=== PATIENT | female | born 1990 | race Caucasian/White ===

== ENCOUNTER 2017-05-21 07:53 | Emergency (ER) | payer BC, OTHER ==
[2017-05-21 08:29] LABS: #Eosinphils 0.3 thou/uL (0.0-0.7); #Lymphocytes 1.8 thou/uL (1.20-3.40); #Monocytes 0.6 thou/uL (0.11-0.59); #Neutrophils 4.8 thou/uL (1.40-6.50); %Basophils 0.6 % (0.0-1.0); %Eosinophils 4.1 % (0.0-10.0); %Lymphocytes 24.1 % (21.0-51.0); %Monocytes 7.5 % (0.0-10.0); Hematocrit 38.1 % (36.0-47.0); Mean Platelet Volume 6.7 fL (7.4-10.4); Red Blood Cell (RBC) Count 3.71 mill/uL (4.20-5.40); White Blood Cell (WBC) Count 7.6 thou/uL (4.8-10.8)
[2017-05-21 09:02] LABS: Bilirubin Negative (Negative); Blood, Urine Trace (Negative); Glucose, Urine (Dipstick) Negative (Negative); Ketone, Urine Negative (Negative); Nitrite Negative (Negative); Protein, Urine (Dipstick) Negative (Neg-Trace); Urobilinogen 0.2 mg/dL (0.2-1.0)
[2017-05-21 09:03] LABS: Bacteria/HPF None Seen HPF (None Seen); Hyaline Casts/LPF 0-3 HYALINE CAST LPF (0-3 Hyaline); RBC/HPF None Seen HPF (0-3); Squamous Epithelial 0-3 HPF (0-3); WBC/HPF None Seen HPF (0-3)
== END 2017-05-21 09:40 | disposition home or self-care (01) ==
LOC: ERS 07:53
DX: O03.9 Complete or unspecified spontaneous abortion without complication (principal); F17.210 Nicotine dependence, cigarettes, uncomplicated
CPT/HCPCS: 36415; 81003; 81015; 84702; 85025; 86900; 86901

== ENCOUNTER 2017-05-21 17:29 | Emergency (ER) | payer BC, OTHER ==
[2017-05-21] MEDS ORDERED: Ondansetron HCl/PF 4 MG/2 ML Vial ONE (18:04)
[2017-05-21] MEDS ORDERED: Morphine 4 MG/ML VIAL ONE (18:04)
[2017-05-21 18:53] LABS: #Basophils 0.1 thou/uL (0.0-0.2); #Eosinphils 0.2 thou/uL (0.0-0.7); #Lymphocytes 2.9 thou/uL (1.20-3.40); #Monocytes 0.7 thou/uL (0.11-0.59); #Neutrophils 3.8 thou/uL (1.40-6.50); %Basophils 0.8 % (0.0-1.0); %Eosinophils 3.2 % (0.0-10.0); %Monocytes 9.2 % (0.0-10.0); Hematocrit 38.3 % (36.0-47.0); Mean Platelet Volume 7.6 fL (7.4-10.4); Red Blood Cell (RBC) Count 3.72 mill/uL (4.20-5.40); White Blood Cell (WBC) Count 7.7 thou/uL (4.8-10.8)
[2017-05-21] MEDS ORDERED: Morphine 2 mg/2ml in 0.9% NaCl PF SYRINGE ONE (19:16)
--- NOTE | 2017-05-21 20:33 | ULT ---
PELVIC SONOGRAM TRANSABDOMINAL AND TRANSVAGINAL IMAGING WITH DUPLEX EVALUATION. 05/21/17 HISTORY: Pelvic pain and bleeding. Recent spontaneous . FINDINGS: Urinary bladder is incompletely distended. The uterus has a heterogeneous echotexture and is retrofle xed. It measures up to 9.8 cm in length. Endometrium is 1.4 cm. Minimal free fluid is present within the dependent portion of the pelvis. A tiny hypoechogenicity is present within the thickened endometr ium but is nonspecific. It may represent a small amount o fluid . The right ovary is 3.4 cm in length and the left 2.9 cm. Each has a normal sonographic appearance and demonstrates good color and spectral doppler flow. IMPRESSION: Retroverted uterus. Endometrium remains thickened at 1.4 cm with minimal fluid. POS: [facility]
== END 2017-05-21 20:47 | disposition home or self-care (01) ==
LOC: ERS 17:29
DX: O03.9 Complete or unspecified spontaneous abortion without complication (principal); F17.210 Nicotine dependence, cigarettes, uncomplicated
CPT/HCPCS: 36415; 76856; 81003; 81015; 84702; 85025; 86900; 86901; 96361; 96374; 96375; 96376; 99284; J2270; J2405